=== PATIENT | male | born 1970 | race Caucasian/White ===

== ENCOUNTER 2017-10-05 10:25 | Emergency (ER) | payer OTHER ==
[2017-10-05 10:51] VITALS: PULSE 78; TEMP 98.4; BMI 36.6
[2017-10-05 10:55] VITALS: BP 121/76
--- NOTE | 2017-10-05 10:57 | PDOC ---
History of Present Illness - General Chief Complaint: Injury Stated Complaint: RIGHT FOOT LACERATION Time Seen by Provider: 10/05/17 10:27 History Source: Patient Exam Limitations: No Limitations - History of Present Illness Initial Comments: 10/05/17 10:51 47 y/o male with right foot cut. Broke his watch last night. 3 am this morning felt like he stepped on a piece of glass. No pain or swelling or redness. UTD with Tetanus. No active bleeding. Wants to make sure no glass is in foot. Severity: mild Past History - Past Medical History Allergies/Adverse Reactions: Allergies Allergy/AdvReac Type Severity Reaction Status Date / Time Penicillins Allergy Severe swelling Verified 07/13/16 08:04 rosuvastatin calcium AdvReac Severe myalgias Verified 07/13/16 08:04 [From [facility]] Home Medications: Ambulatory Orders Aspirin [Ecotrin] 81 mg PO DAILY 06/10/15 Allopurinol [Zyloprim -] 100 mg PO DAILY 10/05/17 Biotin 10,000 mcg PO DAILY 10/05/17 Chlordiazepoxide/Clidinium Br [Librax Capsule] 1 each PO DAILY 10/05/17 Clindamycin [Cleocin -] 150 mg PO Q8H #15 capsule 10/05/17 Losartan/Hydrochlorothiazide [Losartan-Hctz 100-25 mg Tab] 1 each PO DAILY 10/05 Metformin HCl [Metformin HCl ER] 1,000 mg PO DAILY 10/05/17 Diabetes: Yes GI Disorders: Yes HTN: Yes Hypercholesterolemia: Yes - Immunization History Immunization Up to Date: Yes - Suicide/Smoking/Psychosocial Hx Smoking History: Never smoked Hx Alcohol Use: Yes Drug/Substance Use Hx: No Substance Use Type: Alcohol Review of Systems - Review of Systems Able to Perform ROS?: Yes Is the patient limited [place] proficient: No Constitutional: No: Chills, Fever Respiratory: No: Cough, Shortness of Breath Cardiac (ROS): No: Chest Pain Musculoskeletal: No: Joint Pain, Muscle Pain Neurological: No: Numbness, Paresthesia All Other Systems: Reviewed and Negative *Physical Exam - Physical Exam General Appearance: Yes: Nourished, Appropriately Dressed. No: Apparent Distress HEENT: positive: MARISA, Normal ENT Inspection Neck: positive: Trachea midline, Supple Respiratory/Chest: positive: Lungs Clear, Normal Breath Sounds Cardiovascular: positive: Regular Rhythm, Regular Rate, S1, S2. negative: Edema Vascular Pulses: Femoral (R): 4+, Femoral (L): 4+, Carotid (R): 4+, Carotid (L) : 4+, Dorsalis-Pedis (R): 4+, Doralis-Pedis (L): 4+ Gastrointestinal/Abdominal: positive: Normal Bowel Sounds Lymphatic: negative: Adenopathy, Tenderness, Other Musculoskeletal: positive: Normal Inspection. negative: CVA Tenderness Extremity: positive: Normal Capillary Refill, Normal Range of Motion. negative : Normal Inspection (small cut to sole of right foot, nail discoloration, no redness or swelling noted to right foot, small cut 0.25 cm noted to sole of foot where entry of glass may be) Integumentary: positive: Normal Color, Dry, Warm. negative: Erythema Neurologic: positive: exchange consultant II-XII NML intact, Fully Oriented, Alert, Normal Mood/ Affect, Normal Response, Motor Strength 5/5 ED Treatment Course - RADIOLOGY Radiology Studies Ordered: 10/05/17 10:55 Procedure: Using 23 gauge needle, felt some scraping against needle, small amount of blood, Usining hemastat small piece of glass removed. No scraping feeling with needle used after glass removed. Pt tolerated procedure well. *DC/Admit/Observation/Transfer Diagnosis at time of Disposition: Foreign body in foot, right Qualifiers: Encounter type: initial encounter Qualified Code(s): S90.851A - Superficial foreign body, right foot, initial encounter - Discharge Dispostion Disposition: HOME Condition at time of disposition: Good Admit: No - Referrals Referrals: Foreign Christensen MD [Primary Care Provider] - - Patient Instructions Printed Discharge Instructions: DI for Puncture Wound Additional Instructions: Ice, Tylenol, rest Clindamycin 150 mg 3x/day for 5 days If worsen return to ER - Post Discharge Activity
== END 2017-10-05 11:04 | disposition home or self-care (01) ==
LOC: FER 10:25
PROC: 0HCMXZZ Extirpation of Matter from Right Foot Skin, External Approach (ICD-10-PCS; principal; 2017-10-05)
DX: S90.851A Superficial foreign body, right foot, initial encounter (principal); W22.8XXA Striking against or struck by other objects, initial encounter; Y93.89 Activity, other specified; Y92.9 Unspecified place or not applicable; I10 Essential (primary) hypertension; E78.00 Pure hypercholesterolemia, unspecified; E11.9 Type 2 diabetes mellitus without complications; K92.9 Disease of digestive system, unspecified
CPT/HCPCS: 10121; 99282-25

== ENCOUNTER 2020-09-25 14:32 | Emergency (ER) | payer OTHER | END 2020-09-25 14:54 | disposition home or self-care (01) | LOC: JVIRT 14:32 | DX: Z03.818 Encounter for observation for suspected exposure to other biological agents ruled out (principal) | CPT/HCPCS: C9803; Q3014-GT; U0003 ==

== ENCOUNTER 2022-09-19 07:39 | Emergency (ER) | payer OTHER ==
[2022-09-19 07:46] VITALS: BP 162/90; PULSE 97; RESP 20; TEMP 100.1; BMI 35.3
[2022-09-19] MEDS ORDERED: ACETAMINOPHEN 500 MG TABLET (FP) PO ONE (07:46)
[2022-09-19] MEDS ORDERED: ACETAMINOPHEN 325 MG TABLET (FP) ONE (07:57)
== END 2022-09-19 08:05 | disposition home or self-care (01) ==
LOC: FER 07:39
DX: B34.9 Viral infection, unspecified (principal)
CPT/HCPCS: 0241U-QW; 99283-25